=== PATIENT | male | born 1970 | race Two or more races ===

== ENCOUNTER 2016-10-16 15:35 | Emergency (ER) | payer MEDICAID ==
[~2016-10-16] VITALS: Ht 167.6 cm; Wt 90.0 kg
[~2016-10-16 15:35] MED LIST: ACCU CHEK STRIPS SC; CYCL-36 PO; LISI2.5T55 PO; METF-324 PO; OMEP20TA PO; SIMV20TA OR; [UNRECOGNIZED DRUG - SUPPLY] SC
[2016-10-16 15:37] VITALS: BP 126/76; PULSE 76; RESP 20; TEMP 98.3; O2SAT 98
--- NOTE | 2016-10-16 15:42 | PD ---
Physical Exam Date Seen by Provider: Oct 16, 2016 Time Seen by Provider: 15:40 Data Data Last Documented VS Vital Signs Date Time Temp Pulse Resp B/P Pulse Ox O2 Delivery O2 Flow Rate FiO2 10/16/16 15:37 98.3 76 20 126/76 98 Room Air [facility] Supervised Visit with MICHEAL: No Narrative Course 46 YO M with complaint of right sided back pain x "a couple weeks." No known injury. Worse with movement, coughing. Vitals reviewed. Seen in triage, awaiting bed placement. Aure Garza Oct 16, 2016 15:42
[2016-10-16] MEDS ORDERED: CYCL1TAB29 PO (15:58)
--- NOTE | 2016-10-16 15:58 | PD ---
HPI . Right flank pain Chief Complaint: Back/ Neck Pain or Injury Time Seen by Provider: 15:46 Travel History International Travel<30 days: No Contact w/Intl Traveler<30days: No Traveled to known affect area: No History of Present Illness HPI Patient presents with right flank pain. Onset has been about 2 weeks. Pain is gradually worsening. Pain is exacerbated by movement. No relieving factors. No [id number] medications taken prior to presentation. He describes the pain as a pulling sensation and rates it as 8/10. He denies any urinary tract symptoms such as dysuria, frequency or urgency. He denies any respiratory symptoms such as cough or shortness of breath. PFSH Past Medical History Blood Disorders: No Cancer: No Cardiovascular Problems: No Diminished Hearing: No Endocrine: No Genitourinary: No Immune Disorder: No Musculoskeletal: No Neurologic: No Psychiatric: No Reproductive: No Respiratory: No Past Surgical History Abdominal Surgery: Yes (ABD SX) Other Surgery: Yes (UMBILICAL HERNIA) Social History Alcohol Use: No Tobacco Use: No Substance Use: Yes (SMOKES "WEED") Allergies-Medications (Allergen,Severity, Reaction): Coded Allergies: No Known Allergies (Verified , 10/16/16) Reported Meds & Prescriptions Reported Meds & Active Scripts Active Review of Systems Except as stated in HPI: all other systems reviewed are Neg General / Constitutional: No: Fever, Chills Respiratory: No: Cough, Shortness of Breath Gastrointestinal: No: Nausea, Vomiting Genitourinary: No: Urgency, Frequency, Dysuria Musculoskeletal: Positive: Pain Physical Exam Narrative GENERAL: Patient is awake and alert and in no acute distress. He seems to be moving around without much difficulty. SKIN: Warm and dry. HEAD: Atraumatic. Normocephalic. EYES: Pupils equal and round. Extraocular movements are intact. ENT: No nasal bleeding or discharge. Mucous membranes pink and moist. NECK: Trachea midline. Neck supple. CARDIOVASCULAR: Regular rate and rhythm. RESPIRATORY: No accessory muscle use. GASTROINTESTINAL: Abdomen soft, non-tender, nondistended. MUSCULOSKELETAL: No obvious deformities. No edema. I am unable to elicit any tenderness to percussion along his spine or in the CVA area. NEUROLOGICAL: Awake and alert. No obvious cranial nerve deficits. Motor grossly within normal limits. Normal speech. PSYCHIATRIC: Appropriate mood and affect; insight and judgment normal. Data Data Last Documented VS Vital Signs Date Time Temp Pulse Resp B/P Pulse Ox O2 Delivery O2 Flow Rate FiO2 10/16/16 16:47 79 18 122/58 100 Room Air 10/16/16 15:37 98.3 Orders Urinalysis - C+S If Indicated (10/16/16 15:49) Complete Blood Count With Diff (10/16/16 16:22) Comprehensive Metabolic Panel (10/16/16 16:22) Prothrombin Time / Inr (Pt) (10/16/16 16:22) Act Partial Throm Time (Ptt) (10/16/16 16:22) Ct Abd/Pel W Iv Contrast(Rout) (10/16/16 16:22) Iv Access Insert/Monitor (10/16/16 16:22) Morphine Inj (Morphine Inj) (10/16/16 16:30) Ondansetron Inj (Zofran Inj) (10/16/16 16:30) Sodium Chloride 0.9% Flush (Ns Flush) (10/16/16 16:30) Labs Laboratory Tests Test 10/16/16 15:50 Urine Color YELLOW Urine Turbidity HAZY Urine pH 5.5 Urine Specific [place] 1.034 Urine Protein 30 mg/dL Urine Glucose (UA) TRACE mg/dL Urine Ketones 10 mg/dL Urine Occult Blood NEG Urine Nitrite NEG Urine Bilirubin NEG Urine Urobilinogen 2.0 MG/DL Urine Leukocyte Esterase NEG Urine RBC 1 /hpf Urine WBC 2 /hpf Urine Squamous Epithelial <1 /hpf Cells Urine Amorphous Sediment RARE Urine Bacteria RARE /hpf Urine Mucus MANY /lpf Microscopic Urinalysis Comment CULT NOT INDICATED MDM Medical Decision Making Medical Screen Exam Complete: Yes Emergency Medical Condition: Yes Differential Diagnosis Differential diagnosis of flank pain includes but is not limited to kidney stone , pyelonephritis, musculoskeletal pain, PE Narrative Course This patient presents with a 2 week history of flank pain. Pain is exacerbated by movement. Laboratory Tests Test 10/16/16 15:50 Urine Color YELLOW Urine Turbidity HAZY Urine pH 5.5 Urine Specific [place] 1.034 Urine Protein 30 mg/dL Urine Glucose (UA) TRACE mg/dL Urine Ketones 10 mg/dL Urine Occult Blood NEG Urine Nitrite NEG Urine Bilirubin NEG Urine Urobilinogen 2.0 MG/DL Urine Leukocyte Esterase NEG Urine RBC 1 /hpf Urine WBC 2 /hpf Urine Squamous Epithelial <1 /hpf Cells Urine Amorphous Sediment RARE Urine Bacteria RARE /hpf Urine Mucus MANY /lpf Microscopic Urinalysis Comment CULT NOT INDICATED Because of the bilirubinuria, I have ordered a CMP and CT. This patient's care is being turned over to Dr. Lo pending the completion of his evaluation. Diagnosis Primary Impression: Flank pain Condition: Stable Vicki Hill MD Oct 16, 2016 15:58
[2016-10-16 16:13] LABS: BACTERIA, URINE RARE /hpf; BLOOD, URINE NEG (NEG); COMMENT (UR) CULT NOT INDICATED; CULTURE IF INDICATED CULT NOT INDICATED; GLUCOSE,URINE TRACE mg/dL (NEG); KETONE, URINE 10 mg/dL (NEG); MUCUS URINE MANY /lpf (OCC); NITRITE,URINE NEG (NEG); PH, URINE 5.5 (5.0-8.5); SQUAMOUS EPITHELIAL CELL URINE <1 /hpf (0-5); URINE COLOR YELLOW (YELLW/STRAW)
[2016-10-16] MEDS ORDERED: SODIUM CHLORIDE 0.9% FLUSH 10 ML FLUSH IV FLUSH PRN (16:30)
[2016-10-16] MEDS ORDERED: MORPHINE SULFATE 4 MG/ML INJ IV PUSH ONE (16:30)
[2016-10-16] MEDS ORDERED: ONDANSETRON HCL 4 MG/2 ML VIAL IVP ONE (16:30)
[2016-10-16 16:47] VITALS: BP 122/58; PULSE 79; RESP 18; O2SAT 100
[2016-10-16 17:00] LABS: AUTOMATED NEUTROPHIL # 3.5 TH/MM3 (1.8-7.7); BASOPHIL % 0.6 % (0.0-2.0); EOSINOPHIL # 0.3 TH/MM3 (0-0.4); EOSINOPHIL % 3.4 % (0.0-4.0); HEMATOCRIT 42.4 % (39.0-51.0); HEMO FLAGS DIFF FINAL; LYMPH % 40.3 % (9.0-44.0); LYMPHOCYTE # 3.1 TH/MM3 (1.0-4.8); MEAN CELL VOLUME 88.6 FL (80.0-100.0); MEAN CORPUSCULAR HEMOGLOBIN 30.3 PG (27.0-34.0); MEAN CORPUSCULAR HGB CONC 34.2 % (32.0-36.0); MONO % 9.4 % (0.0-8.0); NEUT % 46.3 % (16.0-70.0); PLATELET COUNT 200 TH/MM3 (150-450); RED BLOOD COUNT 4.79 MIL/MM3 (4.50-5.90); RED CELL DISTRIBUTION WIDTH 13.2 % (11.6-17.2); WHITE BLOOD COUNT 7.6 TH/MM3 (4.0-11.0)
[2016-10-16 17:16] LABS: ALT (GPT) 29 U/L (12-78); ANION GAP 7 MEQ/L (5-15); AST (GOT) 20 U/L (15-37); BICARBONATE 26.5 MEQ/L (21.0-32.0); BLOOD UREA NITROGEN 22 MG/DL (7-18); CHLORIDE 108 MEQ/L (98-107); GLOMERULAR FILTRATION RATE 115 ML/MIN (>89); POTASSIUM 3.4 MEQ/L (3.5-5.1); SODIUM (NA) 141 MEQ/L (136-145)
[2016-10-16 17:18] LABS: ALKALINE PHOSPHATASE 54 U/L (45-117); TOTAL BILIRUBIN ADULT 0.6 MG/DL (0.2-1.0)
[2016-10-16 17:19] LABS: APTT (PATIENT) 25.9 SEC (24.3-30.1)
--- NOTE | 2016-10-16 17:29 | PD ---
Data Data Last Documented VS Vital Signs Date Time Temp Pulse Resp B/P Pulse Ox O2 Delivery O2 Flow Rate FiO2 10/16/16 19:28 59 16 131/75 97 10/16/16 16:47 Room Air 10/16/16 15:37 98.3 Orders Urinalysis - C+S If Indicated (10/16/16 15:49) Complete Blood Count With Diff (10/16/16 16:22) Comprehensive Metabolic Panel (10/16/16 16:22) Prothrombin Time / Inr (Pt) (10/16/16 16:22) Act Partial Throm Time (Ptt) (10/16/16 16:22) Ct Abd/Pel W Iv Contrast(Rout) (10/16/16 16:22) Iv Access Insert/Monitor (10/16/16 16:22) Morphine Inj (Morphine Inj) (10/16/16 16:30) Ondansetron Inj (Zofran Inj) (10/16/16 16:30) Sodium Chloride 0.9% Flush (Ns Flush) (10/16/16 16:30) Iohexol 350 Inj (Omnipaque 350 Inj) (10/16/16 18:40) Labs Laboratory Tests Test 10/16/16 10/16/16 15:50 16:38 Urine Color YELLOW Urine Turbidity HAZY Urine pH 5.5 Urine Specific [place] 1.034 Urine Protein 30 mg/dL Urine Glucose (UA) TRACE mg/dL Urine Ketones 10 mg/dL Urine Occult Blood NEG Urine Nitrite NEG Urine Bilirubin NEG Urine Urobilinogen 2.0 MG/DL Urine Leukocyte Esterase NEG Urine RBC 1 /hpf Urine WBC 2 /hpf Urine Squamous Epithelial <1 /hpf Cells Urine Amorphous Sediment RARE Urine Bacteria RARE /hpf Urine Mucus MANY /lpf Microscopic Urinalysis Comment CULT NOT INDICATED White Blood Count 7.6 TH/MM3 Red Blood Count 4.79 MIL/MM3 Hemoglobin 14.5 GM/DL Hematocrit 42.4 % Mean Corpuscular Volume 88.6 FL Mean Corpuscular Hemoglobin 30.3 PG Mean Corpuscular Hemoglobin 34.2 % Concent Red Cell Distribution Width 13.2 % Platelet Count 200 TH/MM3 Mean Platelet Volume 8.2 FL Neutrophils (%) (Auto) 46.3 % Lymphocytes (%) (Auto) 40.3 % Monocytes (%) (Auto) 9.4 % Eosinophils (%) (Auto) 3.4 % Basophils (%) (Auto) 0.6 % Neutrophils # (Auto) 3.5 TH/MM3 Lymphocytes # (Auto) 3.1 TH/MM3 Monocytes # (Auto) 0.7 TH/MM3 Eosinophils # (Auto) 0.3 TH/MM3 Basophils # (Auto) 0.0 TH/MM3 CBC Comment DIFF FINAL Differential Comment Prothrombin Time 11.0 SEC Prothromb Time International 1.0 RATIO Ratio Activated Partial 25.9 SEC Thromboplast Time Sodium Level 141 MEQ/L Potassium Level 3.4 MEQ/L Chloride Level 108 MEQ/L Carbon Dioxide Level 26.5 MEQ/L Anion Gap 7 MEQ/L Blood Urea Nitrogen 22 MG/DL Creatinine 0.73 MG/DL Estimat Glomerular Filtration 115 ML/MIN Rate Random Glucose 166 MG/DL Calcium Level 7.9 MG/DL Total Bilirubin 0.6 MG/DL Aspartate Amino Transf 20 U/L (AST/SGOT) Alanine Aminotransferase 29 U/L (ALT/SGPT) Alkaline Phosphatase 54 U/L Total Protein 6.2 GM/DL Albumin 3.4 GM/DL [facility] Diagnosis Primary Impression: Flank pain Scripts Hydrocodone-Acetaminophen (Lando)5-325 mg Tab1 Tab PO Q6H PRN (PAIN) #10 TAB Ref 0 Prov:Loco Lo MD 10/16/16 Condition: Stable Loco Lo MD Oct 16, 2016 17:29
--- NOTE | 2016-10-16 17:51 | PD ---
Data Data Last Documented VS Vital Signs Date Time Temp Pulse Resp B/P Pulse Ox O2 Delivery O2 Flow Rate FiO2 10/16/16 19:28 59 16 131/75 97 10/16/16 16:47 Room Air 10/16/16 15:37 98.3 Orders Urinalysis - C+S If Indicated (10/16/16 15:49) Complete Blood Count With Diff (10/16/16 16:22) Comprehensive Metabolic Panel (10/16/16 16:22) Prothrombin Time / Inr (Pt) (10/16/16 16:22) Act Partial Throm Time (Ptt) (10/16/16 16:22) Ct Abd/Pel W Iv Contrast(Rout) (10/16/16 16:22) Iv Access Insert/Monitor (10/16/16 16:22) Morphine Inj (Morphine Inj) (10/16/16 16:30) Ondansetron Inj (Zofran Inj) (10/16/16 16:30) Sodium Chloride 0.9% Flush (Ns Flush) (10/16/16 16:30) Iohexol 350 Inj (Omnipaque 350 Inj) (10/16/16 18:40) Labs Laboratory Tests Test 10/16/16 10/16/16 15:50 16:38 Urine Color YELLOW Urine Turbidity HAZY Urine pH 5.5 Urine Specific [place] 1.034 Urine Protein 30 mg/dL Urine Glucose (UA) TRACE mg/dL Urine Ketones 10 mg/dL Urine Occult Blood NEG Urine Nitrite NEG Urine Bilirubin NEG Urine Urobilinogen 2.0 MG/DL Urine Leukocyte Esterase NEG Urine RBC 1 /hpf Urine WBC 2 /hpf Urine Squamous Epithelial <1 /hpf Cells Urine Amorphous Sediment RARE Urine Bacteria RARE /hpf Urine Mucus MANY /lpf Microscopic Urinalysis Comment CULT NOT INDICATED White Blood Count 7.6 TH/MM3 Red Blood Count 4.79 MIL/MM3 Hemoglobin 14.5 GM/DL Hematocrit 42.4 % Mean Corpuscular Volume 88.6 FL Mean Corpuscular Hemoglobin 30.3 PG Mean Corpuscular Hemoglobin 34.2 % Concent Red Cell Distribution Width 13.2 % Platelet Count 200 TH/MM3 Mean Platelet Volume 8.2 FL Neutrophils (%) (Auto) 46.3 % Lymphocytes (%) (Auto) 40.3 % Monocytes (%) (Auto) 9.4 % Eosinophils (%) (Auto) 3.4 % Basophils (%) (Auto) 0.6 % Neutrophils # (Auto) 3.5 TH/MM3 Lymphocytes # (Auto) 3.1 TH/MM3 Monocytes # (Auto) 0.7 TH/MM3 Eosinophils # (Auto) 0.3 TH/MM3 Basophils # (Auto) 0.0 TH/MM3 CBC Comment DIFF FINAL Differential Comment Prothrombin Time 11.0 SEC Prothromb Time International 1.0 RATIO Ratio Activated Partial 25.9 SEC Thromboplast Time Sodium Level 141 MEQ/L Potassium Level 3.4 MEQ/L Chloride Level 108 MEQ/L Carbon Dioxide Level 26.5 MEQ/L Anion Gap 7 MEQ/L Blood Urea Nitrogen 22 MG/DL Creatinine 0.73 MG/DL Estimat Glomerular Filtration 115 ML/MIN Rate Random Glucose 166 MG/DL Calcium Level 7.9 MG/DL Total Bilirubin 0.6 MG/DL Aspartate Amino Transf 20 U/L (AST/SGOT) Alanine Aminotransferase 29 U/L (ALT/SGPT) Alkaline Phosphatase 54 U/L Total Protein 6.2 GM/DL Albumin 3.4 GM/DL MDM Supervised Visit with MICHEAL: No Narrative Course Patient care assumed from Dr. Hill at 1700. Is a 46-year-old male presents emergency Department with low back pain. I'm asked to follow up his labs and CAT scan disposition the patient properly. By daughter's communicating me the patient did have some bilirubin in his urine , basic CAT scan and labs were ordered after that. Patient's CBC and CMP are within normal limits, CAT scan of the abdomen does not show any abnormality other than some minimal diverticulosis without diverticulitis. On my examination and history the patient he is having right flank pain which is exacerbated by movement, he states it also hurts when he is taking deep breath or coughing. Does not have any reproducible pain his abdomen is benign. 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 Given his description of the pain at the musculoskeletal pain is much more likely than internal pain. I discussed symptomatic management home including back brace rest ibuprofen impression. Provided pain medicine for breakthrough pain. Discussed follow-up with the [facility] and return to ED criteria Diagnosis Primary Impression: Flank pain Med/Other Pt SpecificInfo: Prescription(s) given Scripts Hydrocodone-Acetaminophen (Artemus)5-325 mg Tab1 Tab PO Q6H PRN (PAIN) #10 TAB Ref 0 Prov:Loco Lo MD 10/16/16 Disposition: 01 DISCHARGE HOME Condition: Stable Loco Lo MD Oct 16, 2016 17:50
[2016-10-16] MEDS ORDERED: IOHEXOL 350 MG/ML 10 ML VIAL (for RAD DIAG) IV ONE (18:40)
--- NOTE | 2016-10-16 19:08 | RADRPT ---
EXAM DATE/TIME: 10/16/2016 18:17 [facility] COMPARISON: CT ABDOMEN & PELVIS W CONTRAST, June 19, 2009, 16:11. INDICATIONS : Right upper back pain for two weeks. IV CONTRAST: 91 cc Omnipaque 350 (iohexol) IV ORAL CONTRAST: No oral contrast ingested. RADIATION DOSE: 15.31 CTDIvol (mGy) MEDICAL HISTORY : diabetes SURGICAL HISTORY : abdominal surgery ENCOUNTER: Initial ACUITY: 2 weeks PAIN SCALE: 7/10 LOCATION: Right upper back TECHNIQUE: Volumetric scanning of the abdomen and pelvis was performed. Using automated exposure control and ad justment of the mA and/or kV according to patient size, radiation dose was kept as low as reasonably achievable to obtain optimal diagnostic quality images. FINDINGS: LOWER LUNGS: The visualized lower lungs are clear. LIVER: Homogeneous density without lesion. There is no dilation of the biliary tree. No calcified gallston es. SPLEEN: Normal size without lesion. PANCREAS: Within normal limits. KIDNEYS: Normal in size and shape. There is no mass, stone or hydronephrosis. ADRENAL GLANDS: Within normal limits. VASCULAR: There is no aortic aneurysm. BOWEL/MESENTERY: The stomach, small bowel, and colon demonstrate no acute abnormality. There is no free intraperitone al air or fluid. The appendix is normal. There is mild sigmoid diverticulosis. ABDOMINAL WALL: Within normal limits. RETROPERITONEUM: There is no lymphadenopathy. BLADDER: No wall thickening or mass. REPRODUCTIVE: Within normal limits. INGUINAL: There is no lymphadenopathy or hernia. MUSCULOSKELETAL: No acute abnormality. CONCLUSION: 1. No abnormality is identified to explain the clinical symptoms. No acute finding is seen. 2. Mild sigmoid diverticulosis. Liu Greer MD on October 16, 2016 at 19:03 Board Certified Radiologist. This report was verified electronically.
[2016-10-16] MEDS ORDERED: NORC5TAB PO (19:20)
[2016-10-16 19:28] VITALS: BP 131/75
== END 2016-10-16 19:39 | disposition home or self-care (01) ==
LOC: NEPD 15:35
DX: R10.9 Unspecified abdominal pain (principal); M54.5 Low back pain; R82.2 Biliuria
CPT/HCPCS: 74177; 80053; 81001; 85025; 85610; 85730; 96374; 96375; 99285; J2270; J2405; Q9967